=== PATIENT | female | born 2000 | race Caucasian/White ===

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

== ENCOUNTER 2022-03-22 00:38 | Emergency (ER) | payer BC ==
[2022-03-22] MEDS ORDERED: IBUPROFEN 600 MG TABLET (FP) PO ONE ×2 (01:40→02:03)
== END 2022-03-22 02:06 | disposition home or self-care (01) ==
LOC: FER 00:38
DX: S80.912A Unspecified superficial injury of left knee, initial encounter (principal); W01.0XXA Fall on same level from slipping, tripping and stumbling without subsequent striking against object, initial encounter; Y93.68 Activity, volleyball (beach) (court)
CPT/HCPCS: 73562-TC-LT-FY; 73610-TC-LT-FY; 99281-25

== ENCOUNTER 2022-10-17 00:59 | Emergency (ER) | payer BC ==
[2022-10-17 01:10] VITALS: BP 124/83; PULSE 100; RESP 18; TEMP 98.8; BMI 36.9
== END 2022-10-17 03:30 | disposition home or self-care (01) ==
LOC: FER 00:59
DX: S63.501A Unspecified sprain of right wrist, initial encounter (principal); M79.621 Pain in right upper arm; W18.30XA Fall on same level, unspecified, initial encounter; Y93.I9 Activity, other involving external motion; Y92.019 Unspecified place in single-family (private) house as the place of occurrence of the external cause
CPT/HCPCS: 73110-TC-RT-FY; 73130-TC-RT-FY; 99283-25

== ENCOUNTER 2023-03-28 22:35 | Emergency (ER) | payer BC ==
[2023-03-28 22:41] VITALS: BP 127/78; PULSE 98; RESP 18; TEMP 97.3; BMI 37.0
[2023-03-30 10:08] LABS: MONONYCLEOSIS TITER 1:16 (Negative)
== END 2023-03-28 23:29 | disposition home or self-care (01) ==
LOC: FER 22:35
DX: R59.0 Localized enlarged lymph nodes (principal); J02.9 Acute pharyngitis, unspecified; R09.81 Nasal congestion
CPT/HCPCS: 36415; 86308; 99283-25

== ENCOUNTER 2023-08-24 14:42 | Emergency (ER) | payer BC ==
[2023-08-24 15:27] VITALS: BP 107/67; PULSE 80; RESP 20; TEMP 98.3; BMI 36.9
[2023-08-24] MEDS ORDERED: ACETAMINOPHEN INJECTION 100 ML IVPB ONE (15:43)
[2023-08-24] MEDS: ONDANSETRON 4 MG/2 ML VIAL IVPUSH ONE (15:45)
[2023-08-24] MEDS: LACTATED RINGERS SOLUTION 1000 ML INFUS.BAG IV ONE (15:45)
[2023-08-24] MEDS: ACETAMINOPHEN 1000 MG/100 ML BAG IVPB ONE (15:45)
[2023-08-24 16:17] LABS: HEMATOCRIT 42.7 % (32.4-45.2); HEMOGLOBIN 13.7 G/dL (10.7-15.3); MCH 25.9 pg (25.7-33.7); MCHC 32.1 g/dl (32.0-36.0); MEAN CELL VOLUME 80.7 fl (80-96); MEAN PLT VOLUME 10.4 fl (7.5-11.1); PLATELET COUNT 244.8 10^3/uL (134-434); RBC 5.29 10^6/uL (3.60-5.2); RDW 16.7 % (11.6-15.6); WHITE BLOOD COUNT 6.5 10^3/uL (4.0-10.8)
[2023-08-24] MEDS ORDERED: ONDANSETRON 4 MG/2 ML VIAL ONE (16:21)
[2023-08-24 17:09] LABS: ALBUMIN 4.3 g/dl (3.4-5.0); BILIRUBIN,TOTAL 0.9 mg/dl (0.2-1); CALCIUM 9.3 mg/dl (8.5-10.1); CREATININE 0.6 mg/dl (0.6-1.3); POTASSIUM 3.8 mmol/L (3.5-5.1); TOT PROT 6.8 g/dl (6.4-8.2)
[2023-08-24 17:42] LABS: PLATELET ESTIMATE ADEQUATE
== END 2023-08-24 19:13 | disposition home or self-care (01) ==
LOC: FER 14:42
PROC: 3E033NZ Introduction of Analgesics, Hypnotics, Sedatives into Peripheral Vein, Percutaneous Approach (ICD-10-PCS; principal; 2023-08-24)
PROC: 3E033GC Introduction of Other Therapeutic Substance into Peripheral Vein, Percutaneous Approach (ICD-10-PCS; 2023-08-24)
DX: R10.10 Upper abdominal pain, unspecified (principal); R11.2 Nausea with vomiting, unspecified; R50.9 Fever, unspecified
CPT/HCPCS: 36415; 74177-TC; 80053; 83690; 84703; 85027; 99285-25; J0131; Q9967

== ENCOUNTER 2023-08-28 02:23 | Day surgery (SDC) | payer BC ==
[2023-08-28] MEDS ORDERED: ACETAMINOPHEN INJECTION 100 ML IVPB ONE ×2 (03:19→15:52)
[2023-08-28] MEDS ORDERED: ACETAMINOPHEN 500 MG TABLET (FP) ONE (03:22)
[2023-08-28] MEDS: ACETAMINOPHEN 500 MG TABLET (FP) PO ONE (03:29)
[2023-08-28] MEDS ORDERED: KETOROLAC TROMETHAMINE 30 MG/1 ML VIAL ONE (04:50)
[2023-08-28] MEDS: KETOROLAC TROMETHAMINE 30 MG/1 ML VIAL IVPUSH ONE (04:55)
[2023-08-28 05:22] LABS: INR 1.08 (0.83-1.09); PROTHROMBIN TIME (PATIENT) 12.2 SEC (9.7-13.0)
[2023-08-28 05:29] LABS: BASO % 0.5 % (0-2.0); EOS % 1.7 % (0-4.5); HEMATOCRIT 40.6 % (32.4-45.2); HEMOGLOBIN 13.5 GM/dL (10.7-15.3); LYMPH % 36.6 % (8-40); MCH 26.4 pg (25.7-33.7); MCHC 33.4 g/dl (32.0-36.0); MEAN CELL VOLUME 79.2 fl (80-96); MONO % 6.2 % (3.8-10.2); PLATELET COUNT 240 10^3/uL (134-434); POTASSIUM 3.5 mmol/L (3.5-5.1); RBC 5.12 M/mm3 (3.60-5.2); RDW 15.3 % (11.6-15.6); WHITE BLOOD COUNT 8.7 K/mm3 (4.0-10.0)
[2023-08-28 05:30] LABS: CALCIUM 9.2 mg/dL (8.5-10.1)
[2023-08-28 05:31] LABS: ALBUMIN 3.8 g/dl (3.4-5.0); BLOOD UREA NITROGEN 9.4 mg/dL (7-18)
[2023-08-28 05:34] LABS: CREATININE 0.6 mg/dL (0.55-1.3)
[2023-08-28 05:36] LABS: BILIRUBIN,TOTAL 0.4 mg/dL (0.2-1)
[2023-08-28] MEDS ORDERED: morphine SULFATE 4 MG/ML VIAL ONE (08:19)
[2023-08-28] MEDS: morphine CARPU-JECT 4 MG/1 ML DISP.SYRIN IVPUSH ONE (08:23)
[2023-08-28] MEDS: SODIUM CHLORIDE 1,000 ML IV STA (08:46)
[2023-08-28] MEDS ORDERED: LACTATED RINGERS SOLUTION 1,000 ML/1,000 ML INFUS.BAG IV SCH (10:30)
[2023-08-28] MEDS ORDERED: PROPOFOL 20 ML ONE ×2 (12:56→15:47)
[2023-08-28] MEDS ORDERED: SUCCINYLCHOLINE CHLORIDE 200 MG/10 ML SYRINGE ONE (12:56)
[2023-08-28] MEDS ORDERED: LIDOCAINE HCL/PF 2% SDV 5ML VIAL ONE (12:56)
[2023-08-28] MEDS ORDERED: MIDAZOLAM HCL 2 MG/2 ML SINGLE DOSE VIAL ONE (12:57)
[2023-08-28] MEDS ORDERED: ROCURONIUM BROMIDE 50 MG/5 ML SYRINGE ONE (12:57)
[2023-08-28] MEDS ORDERED: BUPIVACAINE HCL/PF 0.25% (2.5MG/ML) 10 ML VIAL ONE (13:17)
[2023-08-28] MEDS ORDERED: SUGAMMADEX SODIUM 200 MG/2 ML VIAL ONE (15:30)
[2023-08-28] MEDS ORDERED: HYDROmorphone HCl 2 MG/ML VIAL IVPB PRN ×2 (16:04→16:05)
[2023-08-28] MEDS ORDERED: ONDANSETRON 4 MG/2 ML VIAL IVPB PRN (16:06)
[2023-08-28] MEDS: PROMETHAZINE HCL 25 MG/1 ML VIAL IVPB PRN (16:20)
[2023-08-28] MEDS ORDERED: FENTANYL CITRATE/PF 50 MCG/ML VIAL ONE ×2 (16:37→17:05)
[2023-08-28] MEDS: ACETAMINOPHEN 1000 MG/100 ML BAG IVPB ONE (16:40)
[2023-08-28 17:05] VITALS: BMI 37.9
[2023-08-28] MEDS: ACETAMINOPHEN 1000 MG/100 ML BAG IVPB PRN (20:51)
[2023-08-29] MEDS: oxyCODONE HCL 5 MG TABLET PO PRN ×2 (08:19→22:38)
[2023-08-29 08:32] LABS: HEMATOCRIT 36.9 % (32.4-45.2); HEMOGLOBIN 12.2 G/dL (10.7-15.3); MCHC 33.1 g/dl (32.0-36.0); MEAN CELL VOLUME 81.5 fl (80-96); MEAN PLT VOLUME 9.8 fl (7.5-11.1); PLATELET COUNT 228.6 10^3/uL (134-434); RBC 4.53 10^6/uL (3.60-5.2); RDW 15.7 % (11.6-15.6); WHITE BLOOD COUNT 9.8 10^3/uL (4.0-10.8)
[2023-08-29 09:02] LABS: ALBUMIN 3.7 g/dl (3.4-5.0); ALK PHOS 51 U/L (45-117); ANION GAP 8 mmol/L (4-13); BILIRUBIN,TOTAL 0.7 mg/dl (0.2-1); CALCIUM 8.8 mg/dl (8.5-10.1); CHLORIDE 107 mmol/L (98-107); CO2 26 mmol/L (21-32); CREATININE 0.6 mg/dl (0.6-1.3); GLUCOSE,RANDOM 91 mg/dl (74-106); SGOT/AST 23 U/L (15-37); SGPT/ALT 23 U/L (7-52); SODIUM 141 mmol/L (136-145); TOT PROT 5.8 g/dl (6.4-8.2)
[2023-08-29] MEDS: ACETAMINOPHEN 1000 MG/100 ML BAG IVPB ONE (15:57)
[2023-08-29] MEDS: LACTATED RINGERS SOLUTION 1,000 ML/1,000 ML INFUS.BAG IV SCH (20:00)
[2023-08-29 22:39] VITALS: RESP 18
[2023-08-30] MEDS: ACETAMINOPHEN 1000 MG/100 ML BAG IVPB ONE (10:31)
[2023-08-30 10:44] VITALS: BP 117/62; PULSE 72; TEMP 98.2
== END 2023-08-30 13:20 | disposition home or self-care (01) ==
LOC: FER 02:23 → INTOOBSV 08:34 → FM/S 08:34 → UNDOADMOB 08:34 → FASUSAT 11:32 → FM/S 12:08 → FASUSAT 08-30 13:20
PROC: 0FT44ZZ Resection of Gallbladder, Percutaneous Endoscopic Approach (ICD-10-PCS; principal; 2023-08-28 14:22)
DX: K80.10 Calculus of gallbladder with chronic cholecystitis without obstruction (principal)
CPT/HCPCS: 36415; 76705-TC; 80053; 81025; 85025; 85027; 85610; 88304-TC; 94760; 99285-25; J0131

== ENCOUNTER 2023-10-01 12:37 | Emergency (ER) | payer BC ==
[2023-10-01 13:22] VITALS: BP 116/70; PULSE 82; RESP 16; TEMP 98.1; BMI 36.9
[2023-10-01] MEDS: SODIUM CHLORIDE 0.9% 500 ML INFUS.BAG IV ONE (13:30)
[2023-10-01] MEDS ORDERED: FAMOTIDINE 20 MG/50 ML IVPB 20 MG/50 ML MG IVPB ONE (13:34)
[2023-10-01] MEDS ORDERED: MAG HYDROX/AL HYDROX/SIMETH 30 ML UNIT-DOSE CUP ONE (13:34)
[2023-10-01] MEDS ORDERED: ONDANSETRON 4 MG/2 ML VIAL ONE (13:34)
[2023-10-01] MEDS: ONDANSETRON 4 MG/2 ML VIAL IVPUSH ONE (13:35)
[2023-10-01] MEDS: FAMOTIDINE 20 MG/50 ML IVPB 20 MG/50 ML MG IVPB ONE (13:40)
[2023-10-01 13:41] LABS: INR 0.96 (0.83-1.09)
[2023-10-01 13:44] LABS: ACTIVATED PTT 38.2 SECONDS (25.2-36.5)
[2023-10-01 13:45] LABS: HEMATOCRIT 41.8 % (32.4-45.2); HEMOGLOBIN 13.9 G/dL (10.7-15.3); MCH 27.2 pg (25.7-33.7); MCHC 33.2 g/dl (32.0-36.0); MEAN CELL VOLUME 81.9 fl (80-96); MEAN PLT VOLUME 9.5 fl (7.5-11.1); PLATELET COUNT 228.2 10^3/uL (134-434); RDW 15.5 % (11.6-15.6)
[2023-10-01 13:51] LABS: ALBUMIN 4.5 g/dl (3.4-5.0); ALK PHOS 64 U/L (45-117); ANION GAP 9 mmol/L (4-13); BILIRUBIN,TOTAL 0.7 mg/dl (0.2-1); CALCIUM 9.5 mg/dl (8.5-10.1); CHLORIDE 105 mmol/L (98-107); CO2 26 mmol/L (21-32); CREATININE 0.7 mg/dl (0.6-1.3); GLUCOSE,RANDOM 84 mg/dl (74-106); POTASSIUM 3.6 mmol/L (3.5-5.1); SGOT/AST 13 U/L (15-37); SGPT/ALT 12 U/L (7-52); SODIUM 140 mmol/L (136-145); TOT PROT 7.2 g/dl (6.4-8.2)
[2023-10-01 14:15] LABS: PLATELET ESTIMATE ADEQUATE
[2023-10-01] MEDS: MAG HYDROX/AL HYDROX/SIMETH 30 ML UNIT-DOSE CUP PO ONE (14:31)
== END 2023-10-01 15:22 | disposition home or self-care (01) ==
LOC: FER 12:37
PROC: 3E033GC Introduction of Other Therapeutic Substance into Peripheral Vein, Percutaneous Approach (ICD-10-PCS; principal; 2023-10-01)
PROC: 3E033GC Introduction of Other Therapeutic Substance into Peripheral Vein, Percutaneous Approach (ICD-10-PCS; 2023-10-01)
DX: K29.70 Gastritis, unspecified, without bleeding (principal); R10.12 Left upper quadrant pain; R10.31 Right lower quadrant pain; R10.13 Epigastric pain; R11.0 Nausea; R63.0 Anorexia; Z20.822 Contact with and (suspected) exposure to COVID-19
CPT/HCPCS: 0241U-QW; 36415; 74177-TC; 80053; 81003; 81015; 81025; 83605; 83690; 85027; 85610; 85730; 86850; 86900; 86901; 87086; 99285-25; Q9967

== ENCOUNTER 2024-01-28 09:01 | Emergency (ER) | payer BC ==
[2024-01-28] MEDS ORDERED: IBUPROFEN 600 MG TABLET (FP) PO ONE (09:15)
[2024-01-28] MEDS: IBUPROFEN 600 MG TABLET (FP) PO ONE (09:19)
[2024-01-28 09:45] VITALS: BP 115/66; PULSE 78; RESP 17; TEMP 98.6; BMI 34.8
== END 2024-01-28 09:58 | disposition home or self-care (01) ==
LOC: FER 09:01
DX: S63.602A Unspecified sprain of left thumb, initial encounter (principal); W23.1XXA Caught, crushed, jammed, or pinched between stationary objects, initial encounter
CPT/HCPCS: 73140-TC-LT-FY; 99283-25